=== PATIENT | female | born 2000 | race Hispanic/Latino ===

== ENCOUNTER 2018-03-25 12:14 | Emergency (ER) | payer OTHER ==
[2018-03-25 12:56] LABS: #Lymphocytes 1.7 thou/uL (1.20-3.40); #Monocytes 0.5 thou/uL (0.11-0.59); %Basophils 0.3 % (0.0-1.0); %Eosinophils 0.2 % (0.0-10.0); %Lymphocytes 20.3 % (28.0-48.0); %Monocytes 6.6 % (0.0-4.0); %Neutrophils 72.6 % (31.0-61.0); Hemoglobin 14.7 g/dL (12.0-16.0); Mean Corpuscular HGB CONC 34.1 g/dL (32.0-36.0); Mean Corpuscular Hemoglobin 30.3 pg (25.0-35.0); Mean Corpuscular Volume 88.9 fL (78.0-98.0); Mean Platelet Volume 10.1 fL (7.4-10.4); Platelet Count 200 thou/uL (130-400); RBC Distribution Width 12.6 % (11.5-14.5); Red Blood Cell (RBC) Count 4.84 mill/uL (4.00-5.20); White Blood Cell (WBC) Count 8.2 thou/uL (4.8-10.8)
[2018-03-25 12:59] LABS: Bilirubin Small (Negative); Blood, Urine Trace (Negative); Clarity CLOUDY (Clear); Glucose, Urine (Dipstick) Negative (Negative); Leukocyte Small (Negative); Nitrite Negative (Negative); Protein, Urine (Dipstick) 30 mg/dL (Neg-Trace); Specific Gravity, Urine 1.032 (1.002-1.036)
[2018-03-25 13:02] LABS: Bacteria/HPF 1+ HPF (None Seen); WBC/HPF 21-50 HPF (0-3)
[2018-03-25 13:04] LABS: Hyaline Casts/LPF 0-3 HYALINE CAST LPF (0-3 Hyaline); Pathc Cast-AUWi Flag 3.05 (0-2.49)
[2018-03-25 13:20] LABS: ALT (SGPT) 12 U/L (8-55); AST (SGOT) 16 U/L (5-34); Albumin 4.7 g/dL (3.5-5.0); Alkaline Phosphatase 84 U/L (40-150); Anion Gap 14 mmol/L (10-20); BUN (Urea Nitrogen) 13 mg/dL (7.0-18.7); Bilirubin, Total 0.8 mg/dL (0.2-1.2); Calc. Creatinine Clearance 0 mL/min (70-130); Calcium 9.7 mg/dL (7.8-10.44); Carbon Dioxide 22 mmol/L (22-29); Chloride 107 mmol/L (98-107); Estimated GFR-MDRD Greater than 90; Globulin 3.5 g/dL (2.4-3.5); Glucose 92 mg/dL (70-105); Potassium 3.6 mmol/L (3.5-5.1); Protein, Total 8.2 g/dL (6.0-8.3); Sodium 139 mmol/L (136-145)
[2018-03-25 13:27] LABS: Pregnancy Test - Urine (BHCG) Negative (Negative); Pregu Control Background? CLEAR/WHITE (CLR/WHITE); Pregu Control Bar Appear? YES (CONTROL BAR); Specific Gravity 1.032 (1.002-1.036)
[2018-03-25] MEDS ORDERED: Lorazepam 1 MG TAB ONE (15:06)
--- NOTE | 2018-03-25 15:16 | RAD ---
PA AND LATERAL CHEST: Date: 03/25/18 HISTORY: Dyspnea. FINDINGS: Heart size and mediastinum are within normal limits. The lungs are clear of infiltrates. There are no significant bony findings. IMPRESSION: No active intrathoracic disease. POS: TPC
== END 2018-03-25 17:11 | disposition home or self-care (01) ==
LOC: ERS 12:14 → EEVIPCON 12:14 → ERS 17:11
DX: N39.0 Urinary tract infection, site not specified (principal); K21.9 Gastro-esophageal reflux disease without esophagitis; F32.9 Major depressive disorder, single episode, unspecified
CPT/HCPCS: 36415; 71046; 80053; 81003; 81015; 81025; 85025; 85379; 86850; 86900; 86901; 93005

== ENCOUNTER 2019-03-14 04:59 | Emergency (ER) | payer OTHER, SELFPAY ==
[2019-03-14] MEDS ORDERED: Ondansetron ODT 8 MG TAB ONE (05:06)
[2019-03-14] MEDS ORDERED: Promethazine HCl 25 MG/ML VIAL ONE (05:39)
[2019-03-14 06:46] LABS: Bilirubin Negative (Negative); Blood, Urine Trace (Negative); Clarity Turbid (Clear); Glucose, Urine (Dipstick) Normal (Negative); Leukocyte 500 Leu/uL (Negative); Nitrite Negative (Negative); Protein, Urine (Dipstick) 70 mg/dL (Neg-Trace); Urobilinogen Normal mg/dL (Less than 2); WBC/HPF Greater than 50 HPF (0-3)
[2019-03-14 07:00] LABS: Bacteria/HPF 1+ HPF (None Seen); Trichomonas/HPF Rare HPF (None Seen)
[2019-03-14] MEDS ORDERED: cefTRIAXone\\ROCEPHIN 1 GM VIAL ONE (07:10)
[2019-03-14 08:06] LABS: #Lymphocytes 0.7 thou/uL (1.20-3.40); #Monocytes 0.3 thou/uL (0.11-0.59); #Neutrophils 5.9 thou/uL (1.40-6.50); %Basophils 0.1 % (0.0-1.0); %Eosinophils 0.2 % (0.0-10.0); %Lymphocytes 10.4 % (21.0-51.0); %Monocytes 4.5 % (0.0-10.0); %Neutrophils 84.8 % (42.0-75.0); Hemoglobin 10.9 g/dL (12.0-16.0); Mean Corpuscular Hemoglobin 31.2 pg (27.0-31.0); Mean Corpuscular Volume 89.3 fL (78.0-98.0); Mean Platelet Volume 9.7 fL (7.4-10.4); Platelet Count 158 thou/uL (130-400); RBC Distribution Width 12.2 % (11.5-14.5); Red Blood Cell (RBC) Count 3.49 mill/uL (4.20-5.40)
[2019-03-14 08:23] LABS: ALT (SGPT) Less than 7 U/L (8-55); AST (SGOT) 8 U/L (5-34); Albumin 3.2 g/dL (3.5-5.0); Alkaline Phosphatase 48 U/L (40-110); Anion Gap 10 mmol/L (10-20); BUN (Urea Nitrogen) 8 mg/dL (7.0-18.7); Bilirubin, Total 0.2 mg/dL (0.2-1.2); Calc. Creatinine Clearance 0 mL/min (70-130); Calcium 7.8 mg/dL (7.8-10.44); Carbon Dioxide 20 mmol/L (22-29); Chloride 109 mmol/L (98-107); Estimated GFR-MDRD Greater than 90; Globulin 2.4 g/dL (2.4-3.5); Glucose 79 mg/dL (70-105); Lipase 6 U/L (8-78); Potassium 3.4 mmol/L (3.5-5.1); Protein, Total 5.6 g/dL (6.0-8.3); Sodium 136 mmol/L (136-145)
[2019-03-14 08:35] LABS: Bilirubin Negative (Negative); Blood, Urine Negative (Negative); Clarity Clear (Clear); Glucose, Urine (Dipstick) Normal (Negative); Leukocyte 250 Leu/uL (Negative); Nitrite Negative (Negative); Protein, Urine (Dipstick) 50 mg/dL (Neg-Trace); Squamous Epithelial 0-3 HPF (0-3); Urobilinogen Normal mg/dL (Less than 2)
[2019-03-14 08:38] LABS: Bacteria/HPF 1+ HPF (None Seen)
[2019-03-14 08:54] LABS: Trichomonas/HPF Rare HPF (None Seen)
[2019-03-14] MEDS ORDERED: metroNIDAZOLE 250 MG TAB ONE (09:07)
== END 2019-03-14 10:07 | disposition home or self-care (01) ==
LOC: ERS 04:59
DX: O98.312 Other infections with a predominantly sexual mode of transmission complicating pregnancy, second trimester (principal); A59.01 Trichomonal vulvovaginitis; O21.0 Mild hyperemesis gravidarum; O23.42 Unspecified infection of urinary tract in pregnancy, second trimester; O99.612 Diseases of the digestive system complicating pregnancy, second trimester; O99.352 Diseases of the nervous system complicating pregnancy, second trimester; K21.9 Gastro-esophageal reflux disease without esophagitis; G43.909 Migraine, unspecified, not intractable, without status migrainosus; Z3A.18 18 weeks gestation of pregnancy
CPT/HCPCS: 36415; 51701; 80053; 81003; 81015; 83690; 85025; 87086; 96361; 96365; 96367; J0696; J2550

== ENCOUNTER 2019-08-16 19:30 | Inpatient (IN) | payer OTHER ==
[~2019-08-16 19:30] MED LIST: Bupivacaine/Epinephrine 0.25% 30 ML VIAL ONE
[2019-08-16 20:27] VITALS: BMI 26.9
[2019-08-16] MEDS ORDERED: Acetaminophen 500 MG TAB PO PRN (20:39)
[2019-08-16] MEDS ORDERED: Ibuprofen 800 MG TAB PO PRN (20:39)
[2019-08-16] MEDS ORDERED: Ondansetron PF 4 MG/2 ML Vial IVP PRN (20:39)
[2019-08-16] MEDS ORDERED: Misoprostol 200 MCG TAB PR PRN (20:39)
[2019-08-16] MEDS ORDERED: Promethazine HCl 25 MG/ML VIAL IM PRN (20:39)
[2019-08-16] MEDS ORDERED: Methylergonovine 0.2 MG/ML VIAL IM PRN (20:39)
[2019-08-16] MEDS ORDERED: hydrALAZINE 20 MG/ML VIAL SLOW IVP PRN (20:39)
[2019-08-16] MEDS ORDERED: Carboprost 250 MCG/ML AMP IM PRN (20:39)
[2019-08-16] MEDS ORDERED: Diphenoxylate HCl/Atropine Tablet PO PRN ×2 (20:39)
[2019-08-16] MEDS ORDERED: Lidocaine 1% (PF) 30 ML VIAL SC PRN (20:39)
[2019-08-16] MEDS ORDERED: NS w/ Oxytocin 10 units 500 ML IV SCH (20:45)
[2019-08-16 21:09] LABS: Hemoglobin 9.6 g/dL (12.0-16.0); Mean Corpuscular HGB CONC 33.7 g/dL (32.0-36.0); Mean Corpuscular Hemoglobin 26.7 pg (27.0-31.0); Mean Corpuscular Volume 79.2 fL (78.0-98.0); Mean Platelet Volume 9.6 fL (7.4-10.4); Platelet Count 223 thou/uL (130-400); RBC Distribution Width 15.4 % (11.5-14.5); White Blood Cell (WBC) Count 8.8 thou/uL (4.8-10.8)
--- NOTE | 2019-08-16 21:20 | PDOC.FPROB ---
FMR OB H&P: HPI - History of Present Illness Chief Complaint: Induction of Labor Indentification: 19yo @ 39wks by LMP and 12 wk sono History of Present Illness: Multigravida pt presents for eIOL at 39 wks. At confirmation of pt was found to have retained IUD which was elected to keep in place and has been monitored throughout the remainder of the . Pt has a son with known TB risk but had a negative quant gold and son has remained without sx. Has had anemia with hgb as low as 9.6 during but has remained asx and stable. Denies any LOF, vag bleeding/discharge, contractions. Reports good movement. Primary Care Physician: Dr. Rehan Georges FMR OB H&P: Current - Care : 2 Para: 1 Gestational age: 39 Due date: 08/21/2019 Dating Criteria: LMP and 12 wk sono Course/Complications: Retained IUD Anemia of - OB Labs Blood type: O RH: positive Antibody Screen: negative HIV: negative RPR: negative HepBsAg: negative Rubella: immune Gonorrhea: negative Chlamydia: negative Pap Smear: NILM 1 hour gtt: 145 3 hour GTT: 73/142/95 GBS: negative H&H: 10.2/30.5 FMR OB H&P: History - Past Medical History PMH: GERD, epilepsy (last seizure 2014) - OB History OB History: - #1: @ >40wks - [employer] History [employer] History: No infections NILM pap - Surgical History Sx History: None - Social History Social History: Denies tobacco, alcohol, or drug use - Family History Family History: No significant FMHx FMR OB H&P: Medications - Current Home Medications: Medication Instructions Recorded Confirmed Type Ferrous Sulfate [Ferosul] 1 tab PO DAILY 08/16/19 08/16/19 History Allergies/Adverse Reactions: Allergies Allergy/AdvReac Type Severity Reaction Status Date / Time cabbage AdvReac Mild Rash Verified 08/16/19 20:20 gadobenate dimeglumine AdvReac Mild Emesis Verified 08/16/19 20:20 [From Multihance] FMR OB H&P: ROS - Review of Systems General: denies: fever/chills, weight/appetite/sleep changes Eyes: denies: vision changes, double vision ENT: denies: sore throat Cardiovascular: denies: chest pain, edema Gastrointestinal: denies: abdominal pain, nausea, vomiting Genitourinary (Female): denies: vaginal discharge, vaginal pain, vaginal bleeding Musculoskeletal: denies: pain, stiffness Neurologic: denies: numbness, headache Integumentary: denies: itching, rash Breast: denies: skin changes Endocrine: denies: polyuria FMR OB H&P: Vital Signs - Maternal Vital signs: BP: 111/63 HR: 84 - Heart Tones Variability: moderate Acceleration: present Deceleration: absent Category: category 1 [place] contractions every: q7 min FMR OB H&P: Physical Exam - Physical Exam General: NAD, awake, alert and oriented HEENT: normocephalic and atraumatic, EOMI Neck: FROM Heart: RRR General: CTAB, no respiratory distress Abdomen: soft, gravid Musculoskeletal: FROM in all four extremities Neurological: cranial nerves II through XII intact Skin: no rash, good tugor Lymphatic: no unusual bruising or bleeding Psychiatric: intact recent and remote memory, good judgement and insight, normal mood and affect - Pelvic Exam Vulva: normal hair distribution SVE: 50/-3 Infante score: 4 Membranes: Intact Presentation: Vertex FMR OB H&P: Results - Labs Lab results: Laboratory Results - last 24 hr 08/16/19 20:44 WBC 8.8 RBC 3.60 L Hgb 9.6 L Hct 28.5 L MCV 79.2 MCH 26.7 L MCHC 33.7 RDW 15.4 H Plt Count 223 MPV 9.6 FMR OB H&P: A/P - Problem List (1) Encounter for induction of labor Current Visit: Yes Status: Acute Code(s): Z34.90 - ENCNTR FOR SUPRVSN OF NORMAL , UNSP, UNSP TRIMESTER (2) Anemia affecting in third trimester Current Visit: No Status: Acute Code(s): O99.013 - ANEMIA COMPLICATING , THIRD TRIMESTER (3) Epilepsy Current Visit: No Status: Acute Code(s): G40.909 - EPILEPSY, UNSP, NOT INTRACTABLE, WITHOUT STATUS EPILEPTICUS Comment: stable, patient has not had a seizure in over a year Discussion: Date/Time: 08/16/192117 Plan for induction of labor Infante of 4 - will plan to place cytotec for cervical ripening Continue expectant management This H&P was discussed with Dr. Wall and Dr. South who agree with the above documentation and plan. Signature: Dr. Rashad Raya - PGY1 Addendum - Attending - Attending Attestation Date/Time: 08/18/19 0015 I personally evaluated the patient and discussed the management with Dr. South on 08/16/19 I agree with the History, Examination, Assessment and Plan documented above with any addition or exceptions noted below - 19yo @39 weeks admitted for elective induction of labor. Denies any ctx, LOF, VB, (+) FM. SVE /-3. Category 1 FHTs. A/P: 1) IUP@39 weeks - Admit to L&D. Will place cytotec for cervical ripening and recheck in 4 hours.
[2019-08-16] MEDS: Lactated Ringer's 1,000 ML IV SCH (21:26)
[2019-08-16] MEDS: Misoprostol 100 MCG TAB VAG SCH (21:34)
[2019-08-16 21:47] LABS: Syphilis Antibody Nonreactive (Nonreactive); Syphilis Antibody Index 0.06 S/CO (<1.00 Non-Reactive)
[2019-08-16 22:04] LABS: Hep B Surf Ag Non-Reactive S/CO (NonReactive)
[2019-08-16] MEDS: NS w/ Oxytocin 10 units 500 ML IV SCH (22:15)
[2019-08-17] MEDS: Butorphanol Tartrate 1 MG/ML VIAL SLOW IVP PRN ×2 (00:11→02:23)
--- NOTE | 2019-08-17 01:29 | PDOC.LDPN ---
Labor & Delivery Progress Note - Subjective Subjective: comfortable - Objective Vital signs reviewed and normal: yes General: NAD, resting Uterine fundus: non tender SVE: 1:30 Dilation: 3 Effacement: 50% Station: -2 FHT: category 1, variability present [place] contractions every: 2-3 minutes - Assessment (1) Encounter for induction of labor Code(s): Z34.90 - ENCNTR FOR SUPRVSN OF NORMAL , UNSP, UNSP TRIMESTER Current Visit: Yes Status: Acute (2) Anemia affecting in third trimester Code(s): O99.013 - ANEMIA COMPLICATING , THIRD TRIMESTER Current Visit: No Status: Acute (3) Third trimester Code(s): Z33.1 - STATE, INCIDENTAL Current Visit: No Status: Acute Plan: continue plan of care, labor augmentation -: 19yo @ 39wks by LMP and 12 wk sono here for elective IOL -Cytotec placed x1 -SVE@1:30 350-2. Ctx every 2-3 minutes. Will recheck if ctx space out and decided further augmentation plan cytotec vs pitocin. Infante score 5 -Recheck in q3-4hrs Anemia of -Hgb 9.6 IUD in Uterus -aware
[2019-08-17] MEDS ORDERED: Fentanyl 4 mcg/Bup 0.1% Cadd 100 ML ONE (03:42)
[2019-08-17] MEDS: Lactated Ringer's 1,000 ML IV SCH ×2 (03:54→07:59)
--- NOTE | 2019-08-17 04:09 | PDOC.LDPN ---
Labor & Delivery Progress Note - Subjective Subjective: painful contractions - Objective Vital signs reviewed and normal: yes General: NAD, resting Uterine fundus: non tender SVE: 330 Dilation: 3-4 Effacement: 50% Station: -2 FHT: category 1 (FHR baseline stable jumps from 110 to 120. No variables noted) , variability present [place] contractions every: 2-4 minutes - Assessment (1) Encounter for induction of labor Code(s): Z34.90 - ENCNTR FOR SUPRVSN OF NORMAL , UNSP, UNSP TRIMESTER Current Visit: Yes Status: Acute (2) Anemia affecting in third trimester Code(s): O99.013 - ANEMIA COMPLICATING , THIRD TRIMESTER Current Visit: No Status: Acute (3) Third trimester Code(s): Z33.1 - STATE, INCIDENTAL Current Visit: No Status: Acute Plan: continue plan of care, labor augmentation -: 19yo @ 39wks by LMP and 12 wk sono here for elective IOL -Cytotec placed x1 -SVE@1:30 3/50-2. @3:30 3-4/50/-2. Ctx consistent. Infante score 5. No need for cytotec at this time. -Pt to get epidural within next few hours -Recheck in q2-3hrs Anemia of -Hgb 9.6 Retained IUD in Uterus -aware
[2019-08-17] MEDS ORDERED: Ondansetron PF 4 MG/2 ML Vial IVP PRN (04:42)
[2019-08-17] MEDS ORDERED: Acetaminophen 325 MG TAB PO PRN (04:42)
[2019-08-17] MEDS ORDERED: Lactated Ringer's 500 ML IV PRN (04:42)
[2019-08-17] MEDS ORDERED: Naloxone HCl 0.4 mg/ml Vial IVP PRN ×2 (04:42)
[2019-08-17] MEDS ORDERED: Promethazine HCl 25 MG/ML VIAL IM PRN (04:42)
[2019-08-17] MEDS ORDERED: EPHEDRINE 25 MG/5 ML SYRINGE SLOW IVP PRN (04:42)
[2019-08-17] MEDS ORDERED: diphenhydrAMINE 50 MG/ML VIAL IVP PRN (04:42)
[2019-08-17] MEDS ORDERED: Communication Order-Pharmacy FS SCH (04:45)
[2019-08-17] MEDS ORDERED: Fentanyl 4 mcg/Bupivacaine 0.1% Cassette 100 ML EPIDURAL SCH (04:45)
[2019-08-17] MEDS: NS w/ Oxytocin 10 units 500 ML IV SCH (05:34)
[2019-08-17] MEDS: Misoprostol 100 MCG TAB VAG SCH ×2 (05:40→21:59)
--- NOTE | 2019-08-17 06:33 | PDOC.LDPN ---
Labor & Delivery Progress Note - Subjective Subjective: comfortable - Objective Vital signs reviewed and normal: yes General: NAD, resting Uterine fundus: non tender SVE: 445 Dilation: 4 Effacement: 50% (50-60) Station: -2 FHT: category 1 - Assessment (1) Encounter for induction of labor Code(s): Z34.90 - ENCNTR FOR SUPRVSN OF NORMAL , UNSP, UNSP TRIMESTER Current Visit: Yes Status: Acute (2) Anemia affecting in third trimester Code(s): O99.013 - ANEMIA COMPLICATING , THIRD TRIMESTER Current Visit: No Status: Acute (3) Third trimester Code(s): Z33.1 - STATE, INCIDENTAL Current Visit: No Status: Acute Plan: continue plan of care, pitocin for augmentation -: 19yo @ 39wks by LMP and 12 wk sono here for elective IOL -Cytotec placed x1 -SVE@1:30 3/50-2. @3:30 3-4/50/-2. @4:45 4/60/-2. Epidural placed. Pt pain adequately controlled. -Will start pitocin for augmention of labor. -Recheck in q2-3hrs Anemia of -Hgb 9.6 Retained IUD in Uterus -aware
--- NOTE | 2019-08-17 09:20 | PDOC.LDPN ---
Labor & Delivery Progress Note - Subjective Subjective: comfortable - Objective Vital signs reviewed and normal: yes General: NAD, resting Dilation: 7 Effacement: 90% Station: -1 FHT: category 2, variable decelerations, variability present (moderate) [place] contractions every: 3-4 min AROM: bloody fluid (at 0919) Resuscitative measures: other (stopped pitocin, restarted at 2) Plan: continue plan of care, pitocin for augmentation -: - AROM , bloody fluid - continue expectant mgmt - pit at 2 - recheck in 2-3 hours. Addendum - Attending - Attending Attestation Date/Time: 08/17/19 9535 I personally evaluated the patient and discussed the management with Dr. Yates. I agree with the History, Examination, Assessment and Plan documented above with any addition or exceptions noted below. Active labor. Anticipate vaginal delivery soon.
[2019-08-17] MEDS: NS / Oxytocin 40 units/1000ml 1,000 ML IV PRN ×2 (10:53→15:01)
--- NOTE | 2019-08-17 11:28 | PDOC.OPDEL ---
OB Operative/Delivery Note Delivery Dr/Surgeon: Milan Georges Pope Pre-Delivery Diagnosis: elective induction Procedure/Post Delivery Dx: spontaneous vaginal delivery (At 1052 on 08/16) Weeks gestation: 39 (39.3) Anesthesia: epidural - Findings A Sex: male - 1 min: 9 - 5 min: 9 - Additional Findings/Plan Placenta delivered: spontaneous Repaired Obstetrical Laceration: other (1st degree and b/l periurethral. hemostatic without repair) Estimated blood loss: 252 mL Post delivery plan: routine recovery ( complicated by IUD noted in 1T US. IUD was not recovered during delivery. Transabdominal US does not demonstrate intrauterine IUD. Plan to order KUB to verify. Will also send placenta to path) Addendum - Attending - Attending Attestation Date/Time: 08/17/19 1242 I, Chema Byrnes MD, personally evaluated the patient and discussed indications for the procedure described by Dr. Georges. I directly supervised and participated in the Spontaneous Vaginal Delivery and I agree with the description of procedure as documented above without any addition or exceptions
--- NOTE | 2019-08-17 12:07 | RAD ---
EXAM: XR Abdomen 1 View/KUB PROVIDED CLINICAL HISTORY: Identification of intrauterine device. COMPARISON: None FINDINGS: Linear metallic wire density overlies the abdomen. No additional radiopaque or metallic foreign body is seen. Specifically, no radiopaque metallic foreign body is seen overlying the pelvis to correspond to an intrauterine contraceptive device. Bowel gas pattern is nonspecific. No suspicious c alcifications are seen. The osseous structures have a normal appearance. IMPRESSION: 1. No radiopaque or metallic foreign body is seen overlying the pelvis to suggest evidence of an intr auterine contraceptive device based on this exam. 2. Linear metallic wire-like density overlying the abdomen. Clinical correlation is recommended.
[2019-08-17] MEDS ORDERED: NS / Oxytocin 40 units/1000ml 1,000 ML IV SCH (15:40)
[2019-08-17] MEDS ORDERED: Milk Of Magnesia 30 ML UDCUP PO PRN (15:40)
[2019-08-17] MEDS ORDERED: hydrALAZINE 20 MG/ML VIAL SLOW IVP PRN (15:40)
[2019-08-17] MEDS ORDERED: Benzocaine-Menthol 82.5 ML CAN TOP PRN (15:40)
[2019-08-17] MEDS ORDERED: Bisacodyl 10 MG SUPP PR PRN (15:40)
[2019-08-17] MEDS: Ferrous Sulfate 325 MG TAB PO SCH (18:01)
[2019-08-17] MEDS: Docusate Calcium (SURFAK) 240 MG CAP PO SCH (22:01)
[2019-08-18] MEDS: Lactated Ringer's 1,000 ML IV SCH ×3 (04:46→08:14)
[2019-08-18 06:02] LABS: Hemoglobin 8.3 g/dL (12.0-16.0)
[2019-08-18] MEDS ORDERED: Ibuprofen 800 MG TAB PO PRN (06:19)
--- NOTE | 2019-08-18 07:59 | PDOC.OBPPN ---
FMR OB PN: Subj - Interval History Hospital Day: 2 Day: 1 Chief Complaint: none Indentification: 19 yo G2 now P2002 at 39.3 wga s/p Interval History: Min pain. Tolerating PO. Denies swelling, fatigue. FMR OB PN: Obj - Maternal Vital signs: BP: 100/63 HR: 68 RR: 20 Tmax: 97.8 F Pox: 99% on RA - Urine output I&O: 08/17/19 08/18/19 08/19/19 06:59 06:59 06:59 Output Total 337 Balance -337 - Lochia Lochia: downtrending - Pain Management Intervention: oral medication (ibuprofen) FMR OB PN: Exam - Physical Exam General: NAD, awake, alert and oriented Heart: RRR, normal S1/S2 General: CTAB, no respiratory distress Abdomen: soft, bowel sound present, no masses Deviation from normal: uterus firm and below umbilicus Psychiatric: normal mood and affect - Pelvic Exam : no edema FMR OB PN: Data - Labs Lab results: Laboratory Results - last 24 hr 08/18/19 05:35 Hgb 8.3 L Hct 25.9 L FMR OB PN: A/P - Problem List (1) Anemia affecting in third trimester Current Visit: No Status: Acute Code(s): O99.013 - ANEMIA COMPLICATING , THIRD TRIMESTER (2) Epilepsy Current Visit: No Status: Acute Code(s): G40.909 - EPILEPSY, UNSP, NOT INTRACTABLE, WITHOUT STATUS EPILEPTICUS Comment: stable, patient has not had a seizure in over a year Disposition: likely d/c today. Encourage 2 week visit. Discussion: Date/Time: 08/18/19 0757 19 yo G2 now P2002 s/p PPD #1 - routine care - ambulate - formula feeding, no intention to breastfeed Anemia of - Hgb and hct decreased - no anemia labs done during , ordered today. Will f/u. - PO iron. May consider iron infusion. - Pt is asymptomatic currently. Retained IUD in - not found at delivery - bedside ultrasound, not visualized - KUB, not visualized - placenta pathology pending Hx of Epilepsy - remote. Last seizure several years ago. Signature: Cipriano Yates MD PGY1
[2019-08-18] MEDS: Ferrous Sulfate 325 MG TAB PO SCH (08:19)
[2019-08-18] MEDS: Docusate Calcium (SURFAK) 240 MG CAP PO SCH (08:19)
[2019-08-18 09:15] LABS: Iron 47 ug/dL (50-170); Iron Binding Capacity, Total 465 mcg/dL (265-497); Transferrin, Serum 372 mg/dL (180-382)
[2019-08-18 09:24] LABS: Ferritin 17.01 ng/mL (10-291)
[2019-08-18] MEDS ORDERED: Cyanocobalamin (Vitamin B-12) 1,000 MCG TAB PO SCH (11:45)
[2019-08-18 11:57] VITALS: BP 106/56; TEMP 98.7
[2019-08-19] MEDS ORDERED: Cyanocobalamin (Vitamin B-12) 1,000 MCG TAB PO SCH (09:00)
== END 2019-08-18 14:00 | disposition home or self-care (01) | DRG 806 ==
LOC: L&D 19:39 → 3SE 08-17 15:39
PROVIDERS: ADMIT Family Medicine; ATTEND Family Medicine
PROC: 10E0XZZ Delivery of Products of Conception, External Approach (ICD-10-PCS; principal; 2019-08-17)
PROC: 10907ZC Drainage of Amniotic Fluid, Therapeutic from Products of Conception, Via Natural or Artificial Opening (ICD-10-PCS; 2019-08-17)
PROC: 3E0P7VZ Introduction of Hormone into Female Reproductive, Via Natural or Artificial Opening (ICD-10-PCS; 2019-08-17)
PROC: 3E033VJ Introduction of Other Hormone into Peripheral Vein, Percutaneous Approach (ICD-10-PCS; 2019-08-17)
PROC: 0HQ9XZZ Repair Perineum Skin, External Approach (ICD-10-PCS; 2019-08-17)
DX: O76 Abnormality in fetal heart rate and rhythm complicating labor and delivery (principal); O99.354 Diseases of the nervous system complicating childbirth; Z37.0 Single live birth; O26.33 Retained intrauterine contraceptive device in pregnancy, third trimester; O99.02 Anemia complicating childbirth; D64.9 Anemia, unspecified; O99.62 Diseases of the digestive system complicating childbirth; K21.9 Gastro-esophageal reflux disease without esophagitis; G40.909 Epilepsy, unspecified, not intractable, without status epilepticus; O71.82 Other specified trauma to perineum and vulva; O70.0 First degree perineal laceration during delivery; Z3A.39 39 weeks gestation of pregnancy
CPT/HCPCS: 36415; 36416; 51702; 74018; 82607; 82728; 82746; 83540; 83550; 84466; 85014; 85018; 85027; 86780; 86850; 86900; 86901; 87340; J0595; J2405; J2590

== ENCOUNTER 2023-01-29 16:12 | Emergency (ER) | payer OTHER ==
[2023-01-29 17:07] LABS: Hematocrit 39.4 % (36.0-47.0); Hemoglobin 13.1 g/dL (12.0-16.0); Mean Corpuscular HGB CONC 33.2 g/dL (32.0-36.0); Mean Corpuscular Hemoglobin 28.7 pg (27.0-31.0); Mean Corpuscular Volume 86.4 fl (78.0-98.0); Mean Platelet Volume 12.4 fL (7.4-10.4); Platelet Count 196 10x3/uL (130-400); RBC Distribution Width 15.3 % (11.5-14.5); Red Blood Cell (RBC) Count 4.56 mill/uL (4.20-5.40); White Blood Cell (WBC) Count 8.4 10x3/uL (4.8-10.8)
[2023-01-29 17:09] LABS: Delete Auto Diff?? YES; Manual Diff?? YES
[2023-01-29 17:29] LABS: Band 1 % (5-11); Burr Cells SLIGHT = 2-5 cells HPF (0-1); CellaVision Operator ID LAB.KB; Elliptocytes SLIGHT = 2-5 cells HPF (0-1); Eosinophils 1 % (0-10); Lymphocytes 23 % (21-51); Monocytes 5 % (0-10); Neutrophil 65 % (42-75); Platelet Adequacy Comment Platelets Normal; Polychromasia SLIGHT = 2-3 cells HPF (0-2); Reactive Lymphocytes 5 % (0-10); Total Cell Count 100
[2023-01-29 17:35] LABS: ALT (SGPT) 9 U/L (8-55); AST (SGOT) 14 U/L (5-34); Albumin 4.5 g/dL (3.5-5.0); Alkaline Phosphatase 57 U/L (40-110); Anion Gap 9 mmol/L (10-20); BUN (Urea Nitrogen) 13 mg/dL (7.0-18.7); Bilirubin, Total 0.3 mg/dL (0.2-1.2); Calc. Creatinine Clearance 0 mL/min (70-130); Calcium 9.6 mg/dL (7.8-10.44); Carbon Dioxide 25 mmol/L (22-29); Chloride 105 mmol/L (98-107); Estimated GFR 111; Globulin 3.2 g/dL (2.4-3.5); Glucose 83 mg/dL (70-105); Lipase 7 U/L (8-78); Potassium 4.1 mmol/L (3.5-5.1); Protein, Total 7.7 g/dL (6.0-8.3); Sodium 135 mmol/L (136-145)
[2023-01-29 18:03] LABS: Bacteria/HPF 1+ HPF (None Seen); Bilirubin Negative (Negative); CAUTI Indications for Culture Pelvic or flank pain; Clarity Clear (Clear); Glucose, Urine (Dipstick) Normal (Negative); Ketone, Urine Negative (Negative); Leukocyte 500 Leu/uL (Negative); Nitrite Negative (Negative); Protein, Urine (Dipstick) Negative (Neg-Trace); Specific Gravity, Urine 1.021 (1.002-1.036); Squamous Epithelial 0-3 HPF (0-3); Urobilinogen Normal mg/dL (Less than 2); WBC/HPF 21-50 HPF (0-3); pH, Urine 5.5 (5.0-9.0)
[2023-01-29 18:04] LABS: Blood, Urine 1+ (Negative)
[2023-01-29 18:05] LABS: Urine Culture Reflex Yes Yes
[2023-01-29 18:13] LABS: Pregnancy Test - Urine (BHCG) Negative (Negative); Pregu Control Background? CLEAR/WHITE (CLR/WHITE); Pregu Control Bar Appear? YES (CONTROL BAR); Specific Gravity 1.021 (1.002-1.036)
== END 2023-01-29 19:20 | disposition left against medical advice (07) ==
LOC: ERS 16:12
DX: R10.9 Unspecified abdominal pain (principal); K21.9 Gastro-esophageal reflux disease without esophagitis; G43.909 Migraine, unspecified, not intractable, without status migrainosus
CPT/HCPCS: 80053; 81001; 81025; 83605; 83690; 85025; 87086; 99284

== ENCOUNTER 2023-03-07 12:50 | Emergency (ER) | payer OTHER ==
[2023-03-07] MEDS ORDERED: Ondansetron PF 4 MG/2 ML Vial ONE (13:12)
[2023-03-07 13:32] LABS: Hematocrit 40.6 % (36.0-47.0); Hemoglobin 13.7 g/dL (12.0-16.0); Mean Corpuscular HGB CONC 33.7 g/dL (32.0-36.0); Mean Corpuscular Hemoglobin 29.5 pg (27.0-31.0); Mean Corpuscular Volume 87.3 fl (78.0-98.0); Mean Platelet Volume 12.7 fL (7.4-10.4); Platelet Count 209 10x3/uL (130-400); RBC Distribution Width 14.2 % (11.5-14.5); Red Blood Cell (RBC) Count 4.65 mill/uL (4.20-5.40); White Blood Cell (WBC) Count 15.3 10x3/uL (4.8-10.8)
[2023-03-07 13:37] LABS: Delete Auto Diff?? YES; Manual Diff?? YES
[2023-03-07 13:40] LABS: BHCG - Serum Negative (NEGATIVE); Pregs Control Background? CLEAR/WHITE (CLR/WHITE); Pregs Control Bar Appear? YES (CONTROL BAR)
[2023-03-07 13:55] LABS: Band 10 % (5-11); CellaVision Operator ID LAB.MJL; Large Platelets 7.1 % (0-5); Lymphocytes 5 % (21-51); Monocytes 5 % (0-10); Neutrophil 78 % (42-75); Platelet Adequacy Comment Platelets Normal; RBC Morphology Within Normal Limits; Reactive Lymphocytes 1 % (0-10); Total Cell Count 99
[2023-03-07 13:57] LABS: ALT (SGPT) 14 U/L (8-55); AST (SGOT) 18 U/L (5-34); Albumin 5.2 g/dL (3.5-5.0); Alkaline Phosphatase 63 U/L (40-110); Anion Gap 14 mmol/L (10-20); BUN (Urea Nitrogen) 11 mg/dL (7.0-18.7); Bilirubin, Total 0.4 mg/dL (0.2-1.2); Calc. Creatinine Clearance 0 mL/min (70-130); Calcium 9.9 mg/dL (7.8-10.44); Carbon Dioxide 24 mmol/L (22-29); Chloride 109 mmol/L (98-107); Estimated GFR 123; Globulin 3.1 g/dL (2.4-3.5); Glucose 101 mg/dL (70-105); Potassium 4.1 mmol/L (3.5-5.1); Protein, Total 8.3 g/dL (6.0-8.3); Sodium 143 mmol/L (136-145)
[2023-03-07] MEDS ORDERED: Ketorolac Tromethamine 30 MG/ML VIAL ONE (14:10)
[2023-03-07 14:17] LABS: Bilirubin Negative (Negative); Blood, Urine Negative (Negative); Clarity Clear (Clear); Glucose, Urine (Dipstick) Normal (Negative); Ketone, Urine 100 mg/dL (Negative); Leukocyte 25 Leu/uL (Negative); Nitrite Negative (Negative); Protein, Urine (Dipstick) 50 mg/dL (Neg-Trace); Specific Gravity, Urine 1.028 (1.002-1.036); Urobilinogen Normal mg/dL (Less than 2)
[2023-03-07 14:26] LABS: Bacteria/HPF Rare-Few HPF (None Seen); CAUTI Indications for Culture Acute Hematuria; RBC/HPF 0-3 HPF (0-3)
[2023-03-07 14:27] LABS: Urine Culture Reflex No No
== END 2023-03-07 14:47 | disposition home or self-care (01) ==
LOC: ERS 12:50
DX: R11.10 Vomiting, unspecified (principal)
CPT/HCPCS: 80053; 81001; 84703; 85025; 96374; 96375; J1885; J2405

== ENCOUNTER 2023-07-15 08:19 | Emergency (ER) | payer OTHER, SELFPAY ==
[2023-07-15 09:28] LABS: #Monocytes 0.5 thou/uL (0.11-0.59); %Basophils 0.4 % (0.0-1.0); %Eosinophils 0.4 % (0.0-10.0); %Lymphocytes 23.7 % (21.0-51.0); %Monocytes 6.9 % (0.0-10.0); %Neutrophils 68.2 % (42.0-75.0); Hemoglobin 13.1 g/dL (12.0-16.0); Mean Corpuscular HGB CONC 34.5 g/dL (32.0-36.0); Mean Corpuscular Hemoglobin 30.4 pg (27.0-31.0); Mean Corpuscular Volume 88.2 fl (78.0-98.0); Platelet Count 232 10x3/uL (130-400); Red Blood Cell (RBC) Count 4.31 mill/uL (4.20-5.40); White Blood Cell (WBC) Count 7.3 10x3/uL (4.8-10.8)
[2023-07-15 10:36] LABS: Bacteria/HPF None Seen HPF (None Seen); Bilirubin Negative (Negative); Blood, Urine Negative (Negative); CAUTI Indications for Culture Pregnancy; Clarity Clear (Clear); Glucose, Urine (Dipstick) Normal (Negative); Ketone, Urine Negative (Negative); Leukocyte 500 Leu/uL (Negative); Nitrite Negative (Negative); Protein, Urine (Dipstick) 30 mg/dL (Neg-Trace); RBC/HPF 0-3 HPF (0-3); WBC/HPF 21-50 HPF (0-3); pH, Urine 6.5 (5.0-9.0)
[2023-07-15 10:38] LABS: Urine Culture Reflex Yes Yes
== END 2023-07-15 10:27 | disposition home or self-care (01) ==
LOC: ERS 08:19
DX: N93.9 Abnormal uterine and vaginal bleeding, unspecified (principal); O46.91 Antepartum hemorrhage, unspecified, first trimester; O23.41 Unspecified infection of urinary tract in pregnancy, first trimester; N39.0 Urinary tract infection, site not specified; Z55.6 Problems related to health literacy; Z3A.08 8 weeks gestation of pregnancy
CPT/HCPCS: 36415; 81001; 84702; 85025; 86900; 86901; 87086; 99284